=== PATIENT | male | born 1945 | race Caucasian/White ===

== ENCOUNTER 2021-11-29 07:13 | Day surgery (SDC) | payer OTHER ==
[2021-11-22 15:38] VITALS: BMI 27.3
[2021-11-29] MEDS ORDERED: LIDOCAINE HCL/PF 2% SDV 5ML VIAL ONE (07:46)
[2021-11-29] MEDS ORDERED: PROPOFOL 20 ML ONE ×2 (07:46)
[2021-11-29 08:46] VITALS: PULSE 64; TEMP 98
[2021-11-29 08:59] VITALS: BP 112/78
== END 2021-11-29 09:20 | disposition home or self-care (01) ==
LOC: FASU-ENDO 07:13
PROVIDERS: ATTEND Internal Medicine Gastroenterology
PROC: 0DJD8ZZ Inspection of Lower Intestinal Tract, Via Natural or Artificial Opening Endoscopic (ICD-10-PCS; principal; 2021-11-29 08:23)
DX: Z12.11 Encounter for screening for malignant neoplasm of colon (principal); K57.30 Diverticulosis of large intestine without perforation or abscess without bleeding